=== PATIENT | female | born 1990 | race Caucasian/White ===

== ENCOUNTER 2016-11-05 23:53 | Emergency (ER) | payer MEDICAID ==
[~2016-11-05] VITALS: Ht 165.1 cm; Wt 55.8 kg
[~2016-11-05 23:53] MED LIST: ACETAMINOPHEN120 ML PO; ALBUTEROL SULF8.5 GM IH; ALEVE220 M3 PO; ANTIDEPRESSENT; BACTRIM DS TABL1 TAB PO; BENADRYL25 MG/TA1 PO; CIPROFLOXACIN250 MG PO; CLEOCIN150 MG/CA1 PO; CLEOCIN150 MG/CAP PO; CLINDAMYCIN HC300 M2 PO; DURICEF PO; FAMOTIDINE20 M1 PO; H PO; HYDROCODON-ACE1 EAC7 PO; KEFLEX500 M1 PO; LEVAQUIN250 MG PO; MACROBID100 MG/CAP PO; MOTRIN800 MG PO; NO HOME MEDICATION XX; NO MEDS; NORCO 5-325 TA1 EACH PO; NORCO 5/325 TAB1 TAB PO; NORCO 7.5/325 T1 TAB PO; NORCO 7.5/3251 TA3 PO; OXYCODONE/APAP PO; PRENATAL1 EACH PO; PYRIDIUM200 M1 PO; PYRIDIUM200 MG PO; TRAMADOL HCL50 MG PO; TYLENOL #31 TA1 PO; TYLENOL W/CODEI1 TAB PO; TYLENOL500 MG PO; ULTRAM50 MG PO; VICODIN 5/500 T1 TAB PO; ZITHROMAX250MG Z-PAK PO; ZOFRAN ODT4 MG/UDTAB PO
[2016-11-06 01:29] LABS: URINE BILIRUBIN NEGATIVE (NEG); URINE BLOOD LARGE (NEG); URINE COLOR PINK; URINE GLUCOSE (UA) NEGATIVE (NEG); URINE KETONE NEGATIVE (NEG); URINE LEUKOCYTE ESTERASE POSITIVE (NEG); URINE NITRITE NEGATIVE (NEG); URINE PROTEIN SMALL (NEG)
[2016-11-06 01:30] LABS: URINE APPEARANCE HAZY
[2016-11-06 01:35] LABS: URINE RBC 100-130 /[HPF] (0-5)
[2016-11-06 01:36] LABS: URINE AMORPHOUS 1+
[2016-11-06 02:36] LABS: BASO % 0.1 % (0-2); EOS % 0.6 % (0-7); EOSINOPHIL ABSOLUTE COUNT 0.1 tho/cmm (0.0-0.7); HCT-HEMATOCRIT 32.3 % (34.0-49.0); HGB-HEMOGLOBIN 11.3 gm/dl (12.0-15.5); IMMATURE GRANULOCYTES ABSOLUTE 0.03 tho/cmm (0-0.03); IMMATURE GRANULOCYTES PERCENT 0.3 % (0-0.3); LYMPH % 18.6 % (20-45); LYMPH ABSOLUTE COUNT 2.2 tho/cmm (0.8-4.5); MCH (MEAN CORPUSCULAR HGB) 30.5 pg (28.0-32.0); MCV (MEAN CELL VOLUME) 87.1 fl (82.0-96.0); MEAN PLATELET VOLUME 10.3 cmc (9.4-12.4); MONO % 6.8 % (0-12); MONOCYTE ABSOLUTE COUNT 0.8 tho/cmm (0.0-1.2); NEUTROPHIL ABSOLUTE COUNT 8.9 tho/cmm (1.6-8.0); NEUTROPHIL-AUTOMATED 8.9 tho/cmm (1.6-8.0); NEUTROPHILS % 73.6 % (40-80); PLATELET COUNT 188 tho/cmm (150-450); RED BLOOD COUNT 3.71 mil/cmm (4.00-5.20); RED CELL DISTRIBUTION WIDTH 12.5 % (12.4-16.4)
[2016-11-06 02:52] LABS: ANION GAP 12 mmol/L (0-20); BLOOD UREA NITROGEN 8 mg/dl (6-24); CALCIUM 8.3 mg/dl (8.5-10.5); CARBON DIOXIDE-VENOUS 21 mmol/L (22-32); CHLORIDE 111 mmol/l (96-110); CREATININE 0.39 mg/dl (0.50-1.10); GLUCOSE 79 mg/dL (70-110); POTASSIUM 3.7 mmol/L (3.7-5.1); SODIUM 140 mmol/L (135-145); eGFR VALUE FOR BLACK >90 mL/Min
[2016-11-06] MEDS ORDERED: NORCO 5/3251 TAB PO (05:41)
[2016-11-06] MEDS ORDERED: MACROBID 100 M100 M1 PO (05:43)
== END 2016-11-06 06:00 ==
LOC: EDMED 23:53
PROVIDERS: Emergency Medicine
PROC: 0T9B70Z Drainage of Bladder with Drainage Device, Via Natural or Artificial Opening (ICD-10-PCS; principal; 2016-11-06)
DX: O23.12 Infections of bladder in pregnancy, second trimester (principal); N30.91 Cystitis, unspecified with hematuria; O99.89 Other specified diseases and conditions complicating pregnancy, childbirth and the puerperium; M54.30 Sciatica, unspecified side; O99.332 Smoking (tobacco) complicating pregnancy, second trimester; F17.210 Nicotine dependence, cigarettes, uncomplicated; Z3A.18 18 weeks gestation of pregnancy; Z37.9 Outcome of delivery, unspecified; Z88.0 Allergy status to penicillin; Z88.1 Allergy status to other antibiotic agents
CPT/HCPCS: J7030; P9612